=== PATIENT | female | born 1980 | race Two or more races ===

== ENCOUNTER 2017-02-07 08:02 | Day surgery (SDC) | payer BC ==
[~2017-02-07 08:02] MED LIST: Lactated Ringers 1,000 ML IV SCH; Lidocaine 1% with EPINEPHrine 1:100,000 20 ML MDV ONE; Sodium Chloride 0.9% 10 ML Syringe FLUSH PRN; Sodium Chloride 0.9% 2.5 ML Syringe FLUSH PRN
[2017-02-07] MEDS ORDERED: Lidocaine 2% 5 ML SDV ONE (08:20)
[2017-02-07] MEDS ORDERED: Propofol 200 MG/20 ML SDV ONE (08:20)
[2017-02-07] MEDS ORDERED: fentaNYL 100 MCG/2 ML SDV ONE (08:21)
[2017-02-07] MEDS ORDERED: Midazolam 1 MG/ML 2 ML SDV ONE (08:21)
--- NOTE | 2017-02-07 08:42 | PCM.PREANE ---
Preanesthetic Assessment - Anesthesia/Transfusion/Family Hx Anesthesia History: Prior Anesthesia Without Reaction Family History of Anesthesia Reaction: No Transfusion History: No Prior Transfusion(s) - Review of Systems General: No Symptoms Pulmonary: No Symptoms Cardiovascular: No Symptoms Gastrointestinal: No Symptoms Neurological: No Symptoms Other: Reports: None - Physical Assessment NPO Status Date: 02/06/17 O2 Sat by Pulse Oximetry: 99 Respiratory Rate: 16 Vital Signs: Last Vital Signs Temp 36.5 C 02/07/17 08:17 Pulse 54 L 02/07/17 08:17 Resp 16 02/07/17 08:17 BP 110/67 02/07/17 08:17 Pulse Ox 99 02/07/17 08:17 Height: 1.57 m Weight: 74.389 kg ASA Class: 1 Mental Status: Alert & Oriented x3 Airway Class: Mallampati = 2 Dentition: Reports: Normal Dentition ROM/Head Extension: Full Lungs: Clear to Auscultation, Normal Respiratory Effort Cardiovascular: Regular Rate, Regular Rhythm - Lab Values: Laboratory Last Values WBC 10.57 K/uL (4.0-11.0) 02/07/17 08:30 RBC 4.57 M/uL (4.30-5.90) 02/07/17 08:30 Hgb 13.4 g/dL (12.0-16.0) 02/07/17 08:30 Hct 39.4 % (36.0-46.0) 02/07/17 08:30 MCV 86.2 fL (80.0-98.0) 02/07/17 08:30 MCH 29.3 pg (27.0-32.0) 02/07/17 08:30 MCHC 34.0 g/dL (31.0-37.0) 02/07/17 08:30 RDW Std Deviation 41.6 fl (28.0-62.0) 02/07/17 08:30 RDW Coeff of Mari 13 % (11.0-15.0) 02/07/17 08:30 Plt Count 230 K/uL (150-400) 02/07/17 08:30 MPV 10.30 fL (7.40-12.00) 02/07/17 08:30 Nucleated RBC % 0.0 /100WBC 02/07/17 08:30 Nucleated RBCs # 0 K/uL 02/07/17 08:30 - Allergies Allergies/Adverse Reactions: Allergies Allergy/AdvReac Type Severity Reaction Status Date / Time No Known Allergies Allergy Verified 02/01/17 12:40 - Anesthesia Plan Pre-Op Medication Ordered: None - Acknowledgements Anesthesia Type Planned: General Anesthesia, MAC Pt an Appropriate Candidate for the Planned Anesthesia: Yes Alternatives and Risks of Anesthesia Discussed w Pt/Guardian: Yes Pt/Guardian Understands and Agrees with Anesthesia Plan: Yes PreAnesthesia Questionnaire HEENT History: Reports: None Cardiovascular History: Reports: High Cholesterol - Past Surgical History Head Surgeries/Procedures: Reports: None HEENT Surgical History: Reports: Adenoidectomy, Tonsillectomy - SUBSTANCE USE Smoking Status *Q: Never Smoker Recreational Drug Use History: No - HOME MEDS Home Medications: Home Meds Ibuprofen 1 tab PO ASDIRECTED PRN 02/01/17 [History] [employer] Greens Supplement 2 tbsp PO DAILY 02/01/17 [History] - CURRENT (IN HOUSE) MEDS Current Meds: Current Medications Lactated Ringer's (Ringers, Lactated) 1,000 mls @ 125 mls/hr IV ASDIRECTED JERILYN Last Admin: 02/07/17 08:25 Dose: 125 mls/hr Sodium Chloride (Saline Flush) 10 ml FLUSH ASDIRECTED PRN PRN Reason: Keep Vein Open Sodium Chloride (Saline Flush) 2.5 ml FLUSH ASDIRECTED PRN PRN Reason: Keep Vein Open Discontinued Medications Fentanyl (Sublimaze) Confirm Administered Dose 100 mcg .ROUTE .STK-MED ONE Stop: 02/07/17 08:22 Lidocaine (Xylocaine-Mpf 2%) Confirm Administered Dose 5 ml .ROUTE .STK-MED ONE Stop: 02/07/17 08:21 Lidocaine/Epinephrine (Xylocaine 1% With Epinephrine 1:100,000) Confirm Administered Dose 20 ml .ROUTE .STK-MED ONE Stop: 02/07/17 07:24 Midazolam HCl (Versed 1 Mg/Ml) Confirm Administered Dose 2 mg .ROUTE .STK-MED ONE Stop: 02/07/17 08:22 Propofol (Diprivan 20 Ml) Confirm Administered Dose 400 mg .ROUTE .STK-MED ONE Stop: 02/07/17 08:21
[2017-02-07] MEDS ORDERED: Ketorolac 30 MG/ML SDV ONE (10:17)
--- NOTE | 2017-02-07 10:48 | PCM48HPAN ---
Post Anesthesia Note - EVALUATION WITHIN 48HRS OF ANESTHETIC Vital Signs in Normal Range: Yes Patient Participated in Evaluation: Yes Respiratory Function Stable: Yes Airway Patent: Yes Cardiovascular Function Stable: Yes Hydration Status Stable: Yes Pain Control Satisfactory: Yes Nausea and Vomiting Control Satisfactory: Yes Mental Status Recovered: Yes
--- NOTE | 2017-02-07 10:48 | PCM.POSTAN ---
POST ANESTHESIA ASSESSMENT - MENTAL STATUS Mental Status: Alert, Oriented - RESPIRATORY Respiratory Status: Respiratory Rate WNL, Airway Patent, O2 Saturation Stable - CARDIOVASCULAR CV Status: Pulse Rate WNL, Blood Pressure Stable - GASTROINTESTINAL GI Status: No Symptoms - POST OP HYDRATION Hydration Status: Adequate & Stable
[2017-02-07] MEDS ORDERED: Acetaminophen/oxyCODONE 325-5 MG Tab PO PRN (10:49)
--- NOTE | 2017-02-07 10:53 | PCM.OPNOTE ---
- General Post-Op/Procedure Note Date of Surgery/Procedure: 02/07/17 Operative Procedure(s): Loop Electrosurgical excision procedure Findings: Normal appearing cervix, normal sized mobile uterus,no adnexal masses, no parameterial or paracevical nodularity Pre Op Diagnosis: Cervical dysplasia, Cervical intraepithelial Neoplasia 2- BULMARO 2 Post-Op Diagnosis: Same Anesthesia Technique: General LMA Primary Surgeon: Lauar Valdovinos Fluid Replacement, Intraop: 1,000 EBL in mLs: 5 Complications: None Condition: Good Free Text/Narrative:: Intake & Output 02/06/17 02/07/17 02/07/17 22:59 06:59 14:59 Intake Total 1100 Balance 1100
[2017-02-07] MEDS ORDERED: Lactated Ringers 1,000 ML IV SCH (11:00)
--- NOTE | 2017-02-07 22:29 | OR ---
SURGEON: Laura Valdovinos MD DATE OF PROCEDURE: 02/07/2017 PREOPERATIVE DIAGNOSIS: Moderate cervical dysplasia (BULMARO 2). POSTOPERATIVE DIAGNOSIS: Moderate cervical dysplasia (BULMARO 2). PROCEDURE: Cervical loop electrosurgical excision procedure, LEEP. ANESTHESIA: General LMA. ESTIMATED BLOOD LOSS: Minimal. COMPLICATIONS: None. BRIEF HISTORY: The patient is a 36-year-old lady who had an abnormal Pap smear, ASCUS with positive high-risk HPV, type 16. Colposcopy directed biopsies were consistent with BULMARO 2. The findings including management options were discussed with the patient and the patient accepted to go ahead with operative procedure, in form of LEEP. The risks of the procedure were explained in details including but not limited to bleeding, infection, inability to excise the lesion completely which might lead to further procedures, injury to adjacent surgeries to adjacent structures. She was also counseled regarding long-term risk of possible premature labor/premature rupture of membranes due to shortened cervix/cervical insufficiency and also increased risk of cervical stenosis leading to hematocolpos. Understanding these risks, she accepted to proceed with the procedure. Appropriate consent was obtained. PROCEDURE DETAILS: The patient was brought to the operating room. After giving a suitable level of general anesthesia, she was placed in dorsal lithotomy position, prepped and draped in the usual sterile fashion for vaginal surgery. Time out held. Examination under anesthesia revealed a normal-sized anteverted uterus, no palpable adnexal masses.No parametrial or paracervical nodularity is palpable. A bivalve coated speculum was placed into the vagina with good visualization of the cervix. Acetic acid 5% was applied to the cervix, followed by injection of 1% lidocaine with epinephrine 1:100,000 dilution injected into the cervix performing a paracervical block. Thereafter, using the standard technique, a loop electrode surgical excision procedure was performed using a loop size of 15 x 12 mm. The cervical specimen was removed in whole circumferentially and tagged at 12 o'clock. An endocervical curetting was then performed and samples were collected with the Cytobrush.Hemostasis was achieved with a cautery ball. The instruments were then removed from the patient's vagina. Instrument, sponge counts were correct at the end of the procedure.The patient tolerated the procedure well and was taken to the recovery room in a stable condition. MELISSA / GIOVANNY /[id number] ROXANNE
== END 2017-02-07 11:15 | disposition home or self-care (01) ==
LOC: MW.SDS 08:02
PROVIDERS: ATTEND Obstetrics & Gynecology
DX: N87.1 Moderate cervical dysplasia (principal); E78.00 Pure hypercholesterolemia, unspecified; Z79.899 Other long term (current) drug therapy; Z83.3 Family history of diabetes mellitus; Z82.49 Family history of ischemic heart disease and other diseases of the circulatory system; Z90.89 Acquired absence of other organs
CPT/HCPCS: 36415; 57522; 84703; 85027; 88305; 88307; J1885; J2250; J3010; J7120; 00940; J2704